=== PATIENT | male | born 1970 | race Two or more races ===

== ENCOUNTER 2022-03-07 11:34 | Outpatient (CLI) | payer OTHER | END 2022-03-07 23:59 | disposition home or self-care (01) | LOC: LAB 11:34 | PROVIDERS: ATTEND Specialist | DX: Z01.812 Encounter for preprocedural laboratory examination (principal); Z20.822 Contact with and (suspected) exposure to COVID-19 | CPT/HCPCS: C9803; U0003 ==

== ENCOUNTER 2022-03-14 05:50 | Day surgery (SDC) | payer OTHER ==
--- NOTE | 2022-03-14 07:35 | NUR ---
Patient seen comfortably lying in bed, no apparent distress noted, arrived at unit around 06:00am per endorsement, patient for right shoulder arthroscopy, rotator cuff repair, biceps tenodesis and ingrid distal clavicle resection. Patient AO X 4, able to make needs known, can follow simple commands, no apparent distress noted, breathing even and unlabored. Patient's vital signs within normal limits, no complained of facial numbness or weakness, no extremity numbness or weakness at this time. Patient NPO, denies any abdominal pain, no apparent distress notes, no s/s of hypo/hyperglycemia, no change in level of consciousness, no tremors, denies any pain or discomfort, consents and checklist present in patients chart. Skin intact, warm to touch, no pallor or cyanosis noted. Patient oriented with use of call lights, use of bed control, use of telephone and tv control, also introduces [employer] and RN assigned for today, verbalized understanding and gratitude. All belongings written in the inventory list. All needs attended, kept clean and dry, call light left within reach, safety precautions in place, brakes locked, side rails up X 2, will endorse to next shift for continuity of care.
--- NOTE | 2022-03-14 07:40 | NUR ---
Patient left for surgery around 0740am, remained NPO denies any abdominal pain, no apparent distress notes, no s/s of hypo/hyperglycemia, no change in level of consciousness, no tremors, denies any pain or discomfort, consents and checklist present in patients chart. Patient not wearing any jewelry.
[2022-03-14] MEDS ORDERED: ROCURONIUM BROMIDE 50 MG/5 ML ONE (08:06)
[2022-03-14] MEDS ORDERED: FENTANYL PF 100MCG/2ML AMPUL ONE (08:06)
[2022-03-14] MEDS ORDERED: BUPIVACAINE 0.5 % PF 150 MG/30 ML VIAL ONE ×2 (08:06→08:08)
[2022-03-14] MEDS ORDERED: SUCCINYLCHOLINE CHLORIDE 20 MG/ML VIAL ONE (08:07)
[2022-03-14] MEDS ORDERED: GLYCOPYRROLATE 0.2 MG/ML VIAL ONE (08:07)
[2022-03-14] MEDS ORDERED: DEXAMETHASONE SOD PHOSPHATE 4 MG/ML VIAL ONE (08:07)
[2022-03-14] MEDS ORDERED: EPINEPHRINE (1:1000) 1 MG/ML AMPUL ONE (08:08)
[2022-03-14] MEDS ORDERED: methylPREDNISolone ACETATE 80 MG/ML VIAL ONE (08:08)
[2022-03-14] MEDS ORDERED: HYDROCODONE/APAP 5/325MG TABLET PO PRN ×2 (10:30)
--- NOTE | 2022-03-14 10:47 | NUR ---
Patient came back from surgery around 1044am, stable condition, no apparent distress noted, denies any pain or discomfort at this time, no shortness of breath, afebrile, no respiratory distress. Patient came back with new orders noted and carried out by PACU nurse. Call light left within reach, will monitor closely for any changes.
--- NOTE | 2022-03-14 13:05 | NUR ---
Patient has an order from Dr. Parra, "discharge home today when comfortable", patient made aware of the situation and stated that he wants to go home today. No apparent distress noted, no shortness of breath, respirations even and unlabored, denies any pain or discomfort, no dizziness, no palpitations, no numbness, no change in level of consciousness, no tremors, no s/s of hypo/hyperglycemia at this time, able to ambulate with steady gait, able to tolerate his lunch. Patient S/P right shoulder arthroscopy, rotator cuff repair, biceps tenodesis and ingrid distal clavicle resection, site covered with clean, intact, dry dressings, no bleeding, no unusual odor, no unusual drainage noted, reminded patient that dressings can be removed after 48 hours, verbalized understanding and gratitude. Patient signed all discharge paper works, all belongings taken by patient, inventory list signed by patient. Health teaching provided, verbalized understanding and gratitude. Reminded patient to schedule a follow up appointment with Dr. Parra in 7-10days, office information given to patient, verbalized understanding and gratitude. Skin assessment done prior to discharge, skin intact, warm to touch, no pallor or cyanosis noted. Patient wearing right arm sling, no s/s of circulation impairment noted at this time, no numbness, skin warm to touch, no pallor or cyanosis noted, pulse present during shift, no swelling noted at this time, reminded patient that dressings can be removed in 48 hours, and to observe for s/s of infection, unusual odor, unusual discharge, redness, fluid or blood, swelling. Educated patient that after procedure, soreness, swelling and pain that can be relieved by taking pain medicine is to be expected. Health teaching provided regarding incision care, bathing, activity, managing pain, stiffness and swelling, patient verbalized understanding and gratitude. Peripheral IV line on left forearm removed prior to discharge, complete and intact, no excessive bleeding noted, site covered with dry dressing. Name wristband removed prior to discharge, surgical mask provided for patient to use. RN assisted patient going to the hospital parking lot via wheelchair, left unit at 1305pm stable condition, exit care documents handed to patient.
== END 2022-03-14 16:00 | disposition home or self-care (01) ==
LOC: DS 05:50 → UNDOADMIN 05:52 → MED 05:52 → UNDODISIN 13:05 → DS 16:00
PROVIDERS: ATTEND Specialist
DX: M75.101 Unspecified rotator cuff tear or rupture of right shoulder, not specified as traumatic (principal); I10 Essential (primary) hypertension; Z98.890 Other specified postprocedural states; Z79.899 Other long term (current) drug therapy
CPT/HCPCS: 29824; 29827; 29828; 82962; A4217; C1713; J0171; J0330; J0690; J1100 ×2; J2405; J2704; J3010; J3490 ×4; J7030; G0378; J1040